=== PATIENT | female | born 1995 | race Caucasian/White ===

== ENCOUNTER 2022-03-09 16:39 | Emergency (ER) | payer BC ==
[2022-03-09] MEDS ORDERED: Sodium Chloride 0.9% 1000 ML 1,000 ML IV STA ×2 (18:00→20:03)
--- NOTE | 2022-03-09 18:11 | ERPHSYRPT ---
- History of Present Illness Historian: patient Exam Limitations: no limitations Patient Subjective Stated Complaint: Pt states that for the past 2 weeks she hasn't been able to eat any solid foods but she has been able to drink liquids, went to her doctor and they told her that she may have the flu but was not tested but pt states that she feels fine until she eats so she is pretty sure that she does not have that Triage Nursing Assessment: Pt brought to the ER by her boyfriend, hypertensive and tachycardic, rates abdominal pain as 4/10, smokes marijuana daily, hasn't been able to eat solid food for 2 weeks without vomiting, hx of gastric sleeve 6 years ago, has lost 15 pounds in the past 2 weeks, diarrhea, doesn't appear to be in any distress Timing/Duration: week(s) (2) Activities at Onset: none Quality: cramping Abdominal Pain Onset Location: generalized abdomen Pain Radiation: no radiation Severity of Pain-Max: moderate Severity of Pain-Current: moderate Modifying Factors: Improves With: eating Associated Symptoms: loss of appetite, nausea <MEY EUBANKS - Last Filed: 03/09/22 19:34> <ADENIKE PEACOCK - Last Filed: 03/09/22 21:53> - History of Present Illness Time Seen by Provider: 03/09/22 17:40 Physician History: Patient is a 26-year-old white female who presents with a complaint of being unable to eat solid food for 2 weeks. She can tolerate liquids but not solids. She has been nauseated but had no vomiting she has had no fever chills or sweats. She says she has been living on Zofran. She was sent to the ER by her PCP saying she would probably need a CT scan she needs a history of a gastric sleeve and a cholecystectomy in the past. She rates her pain 4 of 10 she has an increased heart rate and blood pressure and she is lost 15 pounds over the past 2 weeks. (MEY EUBANKS) Allergies/Adverse Reactions: Tetracyclines Allergy (Verified 03/09/22 17:45) Home Medications: ALPRAZolam 0.25 MG [xanAX 0.25 MG] 0.25 mg PO UD PRN 03/09/22 [History] Divalproex Sodium [Divalproex Sodium ER] 1,000 mg PO HS 03/09/22 [History] Travel Risk - International Travel Have you traveled outside of the country in past 3 weeks: No - Coronavirus Screening Are you exhibiting any of the following symptoms?: No Close contact with a COVID-19 positive Pt in past 14-21 Days: No - Vaccine Status Have you recieved a Covid-19 vaccination: Yes Special Procedures Technologist: Moderna - Vaccination Dates Date of 2cond Vaccination (if applicable): 04/2021 <MEY EUBANKS - Last Filed: 03/09/22 19:34> - Review of Systems Constitutional: Weight Loss, No Fever, No Chills Eyes: No Symptoms Ears, Nose, & Throat: No Symptoms Respiratory: No Cough, No Dyspnea Cardiac: No Chest Pain, No Edema, No Syncope Abdominal/Gastrointestinal: Abdominal Pain, Nausea, Appetite Changes, No Vomiting, No Diarrhea Genitourinary Symptoms: No Dysuria Musculoskeletal: No Back Pain, No Neck Pain Skin: No Rash Neurological: No Dizziness, No Focal Weakness, No Sensory Changes Psychological: No Symptoms Endocrine: No Symptoms All Other Systems: Reviewed and Negative <MEY EUBANKS - Last Filed: 03/09/22 19:34> - Past Medical History Pertinent Past Medical History: Yes Psycho-Social History: Anxiety, Bipolar, Other Other Medical History: borderline personality disorder - Past Surgical History Past Surgical History: Yes Gastrointestinal: Cholecystectomy Other Surgical History: gastric sleeve, 2 lypomas removed - Social History Smoking Status: Never smoker Exposure to second hand smoke: No Drug Use: marijuana Patient Lives Alone: No - Female History Hx Last Menstrual Period: 02/22/2022 Hx Now: No <MEY EUBANKS - Last Filed: 03/09/22 19:34> - Physical Exam General Appearance: mild distress, alert Eye Exam: PERRL/EOMI, eyes nml inspection Ears, Nose, Throat Exam: normal ENT inspection, pharynx normal, moist mucous membranes Neck Exam: normal inspection, non-tender, supple, full range of motion Respiratory Exam: normal breath sounds, lungs clear, No respiratory distress Cardiovascular Exam: regular rate/rhythm, normal heart sounds Gastrointestinal/Abdomen Exam: soft, tenderness, guarding, No mass Back Exam: normal inspection, normal range of motion, No CVA tenderness, No vertebral tenderness Extremity Exam: normal inspection, normal range of motion, pelvis stable Neurologic Exam: alert, oriented x 3, cooperative, normal mood/affect, nml cerebellar function, sensation nml, No motor deficits Skin Exam: normal color, warm, dry SpO2: 100 <MEY EUBANKS - Last Filed: 03/09/22 19:34> - Nursing Vital Signs Nursing Vital Signs: Initial Vital Signs Temperature 98.8 F 03/09/22 17:35 Pulse Rate 106 H 03/09/22 17:35 Blood Pressure 143/86 03/09/22 17:35 O2 Sat by Pulse Oximetry 100 03/09/22 17:35 Pain Scale Pain Intensity 0 - Course Nursing assessment & vital signs reviewed: Yes <MEY EUBANKS - Last Filed: 03/09/22 19:34> Ordered Tests: Active Orders 24 hr Category Date Time Status IV Insertion STAT Care 03/09/22 18:00 Active ABDOMEN AND PELVIS W CONTRAST [CT] Stat Exams 03/09/22 18:00 Taken AMYLASE Stat Lab 03/09/22 18:20 Completed CBC W DIFF Stat Lab 03/09/22 18:20 Completed CMP Stat Lab 03/09/22 18:20 Completed HCG,QUALITATIVE URINE Stat Lab 03/09/22 18:32 Completed LIPASE Stat Lab 03/09/22 18:20 Completed Lactic Acid Stat Lab 03/09/22 18:25 Completed PROTIME WITH INR Stat Lab 03/09/22 18:20 Completed UA W/RFX CULTURE Stat Lab 03/09/22 18:32 Completed Medication Summary Discontinued Medications Generic Name Dose Route Start Last Admin Trade Name Rajinder PRN Reason Stop Dose Admin Sodium Chloride 1,000 mls @ 999 mls/hr 03/09/22 18:00 03/09/22 19:42 Sodium Chloride 0.9% 1000 Ml IV 03/09/22 19:00 Infused .Q1H1M STA Infusion Sodium Chloride Confirm 03/09/22 18:33 Sodium Chloride 0.9% 1000 Ml Administered 03/09/22 18:34 Dose 1,000 mls @ ud .ROUTE .STK-MED ONE Sodium Chloride 1,000 mls @ 999 mls/hr 03/09/22 20:03 03/09/22 20:11 Sodium Chloride 0.9% 1000 Ml IV 03/09/22 21:03 999 mls/hr .Q1H1M STA Administration Sodium Chloride Confirm 06/01/22 20:10 Sodium Chloride 0.9% 1000 Ml Administered 03/09/22 20:11 Dose 1,000 mls @ .[facility] ONE Lab/Rad Data: Laboratory Result Diagrams 03/09/22 18:20 03/09/22 18:20 Laboratory Results 03/09/22 03/09/22 03/09/22 Range/Units 18:32 18:32 18:25 WBC (4.0-10.5) x10^3/uL RBC (4.1-5.4) x10^6/uL Hgb (12.0-16.0) g/dL Hct (35-47) % MCV (78-100) fL MCH (26-32) pg MCHC (32-36) g/dL RDW (11.5-14.0) % Plt Count (150-450) x10^3/uL MPV (7.5-11.0) fL Gran % (36.0-66.0) % Immature Gran % (Auto) (0.00-0.4) % Nucleat RBC Rel Count (0.00-0.1) % Eos # (Auto) (0-0.5) x10^3/uL Immature Gran # (Auto) (0.00-0.03) x10^3u/L Absolute Lymphs (auto) (1.0-4.6) x10^3/uL Absolute Monos (auto) (0.0-1.3) x10^3/uL Absolute Nucleated RBC (0.00-0.01) x10^3u/L Lymphocytes % (24.0-44.0) % Monocytes % (0.0-12.0) % Eosinophils % (0.00-5.0) % Basophils % (0.0-0.4) % Absolute Granulocytes (1.4-6.9) x10^3/uL Basophils # (0-0.4) x10^3/uL PT (9.4-12.5) SECONDS INR (0.8-3.0) Sodium (137-145) mmol/L Potassium (3.5-5.1) mmol/L Chloride (98-107) mmol/L Carbon Dioxide (22-30) mmol/L Anion Gap (5-15) MEQ/L BUN (7-17) mg/dL Creatinine (0.52-1.04) mg/dL Estimated GFR ML/MIN Glucose (74-106) mg/dL Lactic Acid 0.9 (0.4-2.0) Calcium (8.4-10.2) mg/dL Total Bilirubin (0.2-1.3) mg/dL AST (14-36) U/L ALT (0-35) U/L Alkaline Phosphatase (38-126) U/L Serum Total Protein (6.3-8.2) g/dL Albumin (3.5-5.0) g/dL Amylase (30-110) U/L Lipase (23-300) U/L Urinalys Dipstick Clnc MAIN LAB Urine Color YELLOW (YELLOW) Urine Appearance CLEAR (CLEAR) Urine pH 6.0 (5-6) Ur Specific [place] 1.020 (1.005-1.025) POC Urine Protein Conf NEGATIVE (Negative) Urine Ketones MODERATE-40 (NEGATIVE) Urine Nitrite NEGATIVE (NEGATIVE) Urine Bilirubin NEGATIVE (NEGATIVE) Urine Urobilinogen 0.2 (0-1) mg/dL Urine Leukocytes NEGATIVE (NEGATIVE) Urine WBC (Auto) 6-10 (0-5) /HPF Urine RBC (Auto) 3-5 (0-2) /HPF U Epithel Cells (Auto) RARE (FEW) /HPF Urine Bacteria (Auto) RARE (NEGATIVE) /HPF Urine RBC NEGATIVE (0-5) Adriel/ul Urine Mucus (Auto) SLIGHT (NEGATIVE) /HPF Ur Culture Indicated? NO Urine Glucose NEGATIVE (NEGATIVE) mg/dL Urine HCG, Qual NEGATIVE (Negative) Influenza Type A Ag (NEGATIVE) Influenza Type B Ag (NEGATIVE) RSV (PCR) (Negative) SARS-CoV-2 (PCR) (NEGATIVE) 03/09/22 03/09/22 03/09/22 Range/Units 18:20 18:20 18:20 WBC (4.0-10.5) x10^3/uL RBC (4.1-5.4) x10^6/uL Hgb (12.0-16.0) g/dL Hct (35-47) % MCV (78-100) fL MCH (26-32) pg MCHC (32-36) g/dL RDW (11.5-14.0) % Plt Count (150-450) x10^3/uL MPV (7.5-11.0) fL Gran % (36.0-66.0) % Immature Gran % (Auto) (0.00-0.4) % Nucleat RBC Rel Count (0.00-0.1) % Eos # (Auto) (0-0.5) x10^3/uL Immature Gran # (Auto) (0.00-0.03) x10^3u/L Absolute Lymphs (auto) (1.0-4.6) x10^3/uL Absolute Monos (auto) (0.0-1.3) x10^3/uL Absolute Nucleated RBC (0.00-0.01) x10^3u/L Lymphocytes % (24.0-44.0) % Monocytes % (0.0-12.0) % Eosinophils % (0.00-5.0) % Basophils % (0.0-0.4) % Absolute Granulocytes (1.4-6.9) x10^3/uL Basophils # (0-0.4) x10^3/uL PT 12.0 (9.4-12.5) SECONDS INR 1.15 (0.8-3.0) Sodium 138 (137-145) mmol/L Potassium 3.8 (3.5-5.1) mmol/L Chloride 101 (98-107) mmol/L Carbon Dioxide 23 (22-30) mmol/L Anion Gap 17.3 H (5-15) MEQ/L BUN 4 L (7-17) mg/dL Creatinine 0.77 (0.52-1.04) mg/dL Estimated GFR > 60.0 ML/MIN Glucose 93 (74-106) mg/dL Lactic Acid (0.4-2.0) Calcium 9.1 (8.4-10.2) mg/dL Total Bilirubin 0.40 (0.2-1.3) mg/dL AST 52 H (14-36) U/L ALT 56 H (0-35) U/L Alkaline Phosphatase 68 (38-126) U/L Serum Total Protein 7.1 (6.3-8.2) g/dL Albumin 4.1 (3.5-5.0) g/dL Amylase 70 (30-110) U/L Lipase 107 (23-300) U/L Urinalys Dipstick Clnc Urine Color (YELLOW) Urine Appearance (CLEAR) Urine pH (5-6) Ur Specific [place] (1.005-1.025) POC Urine Protein Conf (Negative) Urine Ketones (NEGATIVE) Urine Nitrite (NEGATIVE) Urine Bilirubin (NEGATIVE) Urine Urobilinogen (0-1) mg/dL Urine Leukocytes (NEGATIVE) Urine WBC (Auto) (0-5) /HPF Urine RBC (Auto) (0-2) /HPF U Epithel Cells (Auto) (FEW) /HPF Urine Bacteria (Auto) (NEGATIVE) /HPF Urine RBC (0-5) Adriel/ul Urine Mucus (Auto) (NEGATIVE) /HPF Ur Culture Indicated? Urine Glucose (NEGATIVE) mg/dL Urine HCG, Qual (Negative) Influenza Type A Ag NEGATIVE (NEGATIVE) Influenza Type B Ag NEGATIVE (NEGATIVE) RSV (PCR) NEGATIVE (Negative) SARS-CoV-2 (PCR) NEGATIVE (NEGATIVE) 03/09/22 Range/Units 18:20 WBC 6.6 (4.0-10.5) x10^3/uL RBC 4.86 (4.1-5.4) x10^6/uL Hgb 11.5 L (12.0-16.0) g/dL Hct 37.4 (35-47) % MCV 77.0 L (78-100) fL MCH 23.7 L (26-32) pg MCHC 30.7 L (32-36) g/dL RDW 15.3 H (11.5-14.0) % Plt Count 325 (150-450) x10^3/uL MPV 9.7 (7.5-11.0) fL Gran % 60.0 (36.0-66.0) % Immature Gran % (Auto) 0.5 H (0.00-0.4) % Nucleat RBC Rel Count 0.0 (0.00-0.1) % Eos # (Auto) 0.10 (0-0.5) x10^3/uL Immature Gran # (Auto) 0.03 (0.00-0.03) x10^3u/L Absolute Lymphs (auto) 1.64 (1.0-4.6) x10^3/uL Absolute Monos (auto) 0.78 (0.0-1.3) x10^3/uL Absolute Nucleated RBC 0.00 (0.00-0.01) x10^3u/L Lymphocytes % 25.0 (24.0-44.0) % Monocytes % 11.9 (0.0-12.0) % Eosinophils % 1.5 (0.00-5.0) % Basophils % 1.1 (0.0-0.4) % Absolute Granulocytes 3.94 (1.4-6.9) x10^3/uL Basophils # 0.07 (0-0.4) x10^3/uL PT (9.4-12.5) SECONDS INR (0.8-3.0) Sodium (137-145) mmol/L Potassium (3.5-5.1) mmol/L Chloride (98-107) mmol/L Carbon Dioxide (22-30) mmol/L Anion Gap (5-15) MEQ/L BUN (7-17) mg/dL Creatinine (0.52-1.04) mg/dL Estimated GFR ML/MIN Glucose (74-106) mg/dL Lactic Acid (0.4-2.0) Calcium (8.4-10.2) mg/dL Total Bilirubin (0.2-1.3) mg/dL AST (14-36) U/L ALT (0-35) U/L Alkaline Phosphatase (38-126) U/L Serum Total Protein (6.3-8.2) g/dL Albumin (3.5-5.0) g/dL Amylase (30-110) U/L Lipase (23-300) U/L Urinalys Dipstick Clnc Urine Color (YELLOW) Urine Appearance (CLEAR) Urine pH (5-6) Ur Specific [place] (1.005-1.025) POC Urine Protein Conf (Negative) Urine Ketones (NEGATIVE) Urine Nitrite (NEGATIVE) Urine Bilirubin (NEGATIVE) Urine Urobilinogen (0-1) mg/dL Urine Leukocytes (NEGATIVE) Urine WBC (Auto) (0-5) /HPF Urine RBC (Auto) (0-2) /HPF U Epithel Cells (Auto) (FEW) /HPF Urine Bacteria (Auto) (NEGATIVE) /HPF Urine RBC (0-5) Adriel/ul Urine Mucus (Auto) (NEGATIVE) /HPF Ur Culture Indicated? Urine Glucose (NEGATIVE) mg/dL Urine HCG, Qual (Negative) Influenza Type A Ag (NEGATIVE) Influenza Type B Ag (NEGATIVE) RSV (PCR) (Negative) SARS-CoV-2 (PCR) (NEGATIVE) - Progress Progress: improved, re-examined Counseled pt/family regarding: lab results, diagnosis, need for follow-up, rad results <ADENIKE PEACOCK - Last Filed: 03/09/22 21:53> - Progress Progress Note: 03/09/22 21:51 CAT scan of the abdomen pelvis with oral contrast (patient did not complete the full oral contrast intake) shows bariatric surgery present. Normal appendix. 1.8 cm left ovarian cyst. Remaining intra-abdominal intrapelvic CAT scan negative. (ADENIKE PEACOCK) - Departure Departure Disposition: Home Critical Care Time: No <MEY EUBANKS - Last Filed: 03/09/22 19:34> - Departure Departure Disposition: Home Critical Care Time: No <ADENIKE PEACOCK - Last Filed: 03/09/22 21:53> - Departure Clinical Impression: Anorexia Condition: Stable Referrals: PALOMA ESCOBAR, [employer] [Primary Care Provider] - Follow up/PCP as directed Additional Instructions: Drink plenty of clear liquids may advance to full liquids. Take your antinausea medicine as needed/prescribed. Call your bariatric surgeon tomorrow morning and notify them of your symptoms and your weight loss. Make a follow-up appointment with them for further evaluation and management Prescriptions: Ondansetron ODT 4 MG [Zofran Odt 4 mg] 4 mg PO Q6H PRN PRN #10 tablet PRN Reason: Vomiting
[2022-03-09 18:29] LABS: Absolute Neutrophil Ct (ANC) 3.94 x10^3/uL (1.4-6.9); Basophil (Absolute #) 0.07 x10^3/uL (0-0.4); Eosinophil % 1.5 % (0.00-5.0); Hematocrit 37.4 % (35-47); Hemoglobin 11.5 g/dL (12.0-16.0); Lymphocyte (Absolute #) 1.64 x10^3/uL (1.0-4.6); Mean Corpuscular Hemoglobin 23.7 pg (26-32); Mean Corpuscular Hgb Concent. 30.7 g/dL (32-36); Mean Platelet Volume 9.7 fL (7.5-11.0); Monocyte (Absolute #) 0.78 x10^3/uL (0.0-1.3); Monocytes % 11.9 % (0.0-12.0); Platelet Count 325 x10^3/uL (150-450); Red Blood Count 4.86 x10^6/uL (4.1-5.4); Red Cell Distribution Width 15.3 % (11.5-14.0); White Blood Count 6.6 x10^3/uL (4.0-10.5)
[2022-03-09] MEDS ORDERED: Sodium Chloride 0.9% 1000 ML 1,000 ML ONE ×2 (18:33→20:10)
[2022-03-09 18:40] LABS: Bacteria RARE /HPF (NEGATIVE); Epithelial Cells RARE /HPF (FEW); Mucus SLIGHT /HPF (NEGATIVE)
[2022-03-09 18:41] LABS: ALBUMIN 4.1 g/dL (3.5-5.0); ALKALINE PHOSPHATASE 68 U/L (38-126); AMYLASE 70 U/L (30-110); ANION GAP 17.3 MEQ/L (5-15); BLOOD UREA NITROGEN 4 mg/dL (7-17); CHLORIDE 101 mmol/L (98-107); Calcium 9.1 mg/dL (8.4-10.2); Carbon Dioxide 23 mmol/L (22-30); Creatinine 1 0.77 mg/dL (0.52-1.04); EST GLOMERULAR FILTRATION RATE > 60.0 ML/MIN; Glucose 93 mg/dL (74-106); LIPASE 107 U/L (23-300); Potassium 3.8 mmol/L (3.5-5.1); SGOT/AST 52 U/L (14-36); SGPT/ALT 56 U/L (0-35); SODIUM 138 mmol/L (137-145); Total Protein 7.1 g/dL (6.3-8.2)
[2022-03-09 18:42] LABS: Appearance CLEAR (CLEAR); Bilirubin NEGATIVE (NEGATIVE); Glucose NEGATIVE (NEGATIVE); Ketones MODERATE-40 (NEGATIVE); RBC NEGATIVE Ery/ul (0-5)
[2022-03-09 18:43] LABS: Dipstick done @ ? MAIN LAB; Nitrite NEGATIVE (NEGATIVE); Protein,Urine Dip NEGATIVE (Negative); Urine Cultured Indicated? NO; Urobilinogen 0.2 mg/dL (0-1)
[2022-03-09 18:44] LABS: INR 1.15 (0.8-3.0)
[2022-03-09 19:06] LABS: INFLUENZA A NEGATIVE (NEGATIVE); INFLUENZA B NEGATIVE (NEGATIVE); RESPIRATORY SYNCTIAL VIRUS NEGATIVE (Negative); SARS-CoV-2 Xpert Express NEGATIVE (NEGATIVE)
[2022-03-09 19:45] VITALS: O2SAT 99
[2022-03-09 22:10] VITALS: BP 121/71; PULSE 76
--- NOTE | 2022-03-10 08:36 | XRAY ---
Indication: Left upper quadrant and right lower quadrant pain. Anorexia, nausea, and diarrhea. Multiple contiguous axial images obtained through the abdomen and pelvis using 80 cc Isovue 370 contrast. Enteric contrast also used. Comparison: [place] 2011. Lung bases demonstrates 1.1 cm lingula calcified granuloma not previously imaged. No infiltrate or effusion. Heart not enlarged. Interval gastric bypass surgery. Contrasted stomach and bowel loops appear nonobstructed with normal appendix. Minimal fecal debris in the descending and sigmoid colon. Again cholecystectomy. New 1.8 cm dominant left ovary cyst. No free fluid/air. Remaining liver, Agris, spleen, adrenal glands, kidneys, ureters, bladder, and aorta are unremarkable. No pathologic retroperitoneal lymphadenopathy. Osseous structures intact. No ventral or inguinal hernias. Impression: 1. Bariatric surgery and 1.8 cm left ovary cyst. 2. Remaining CT abdomen/pelvis with contrast exam is negative.
== END 2022-03-09 22:17 | disposition home or self-care (01) ==
LOC: ED 16:39
DX: R63.0 Anorexia (principal); R11.0 Nausea; Z98.84 Bariatric surgery status; Z79.899 Other long term (current) drug therapy
CPT/HCPCS: 0241U; 36000; 36415; 74177; 80053; 81015; 82150; 83605; 83690; 84703; 85025; 85610; 96360; 96361; 99284